=== PATIENT | male | born 1980 | race Caucasian/White ===

== ENCOUNTER 2017-11-17 09:07 | Day surgery (SDC) | payer OTHER ==
[~2017-11-17 09:07] MED LIST: Acetaminophen/HYDROcodone 325-5 MG Tab PO PRN; Lactated Ringers 1,000 ML IV SCH; ceFAZolin 2 GM in Premix Bag 1 BAG IV SCH
--- NOTE | 2017-11-17 09:50 | PCM.PREANE ---
Preanesthetic Assessment - Anesthesia/Transfusion/Family Hx Anesthesia History: Prior Anesthesia Without Reaction Family History of Anesthesia Reaction: No Transfusion History: No Prior Transfusion(s) - Review of Systems General: No Symptoms Pulmonary: No Symptoms Cardiovascular: No Symptoms Gastrointestinal: No Symptoms Neurological: No Symptoms Other: Reports: None - Physical Assessment O2 Sat by Pulse Oximetry: 97 Respiratory Rate: 20 Vital Signs: Last Vital Signs Temp 36.5 C 11/17/17 09:25 Pulse 73 11/17/17 09:25 Resp 20 11/17/17 09:25 BP 143/98 H 11/17/17 09:25 Pulse Ox 97 11/17/17 09:25 Height: 1.83 m Weight: 120.202 kg ASA Class: 1 Mental Status: Alert & Oriented x3 Dentition: Reports: Normal Dentition ROM/Head Extension: Full Lungs: Clear to Auscultation, Normal Respiratory Effort Cardiovascular: Regular Rate, Regular Rhythm - Allergies Allergies/Adverse Reactions: Allergies Allergy/AdvReac Type Severity Reaction Status Date / Time No Known Allergies Allergy Verified 11/12/17 11:36 - Anesthesia Plan Pre-Op Medication Ordered: None - Acknowledgements Anesthesia Type Planned: General Anesthesia Pt an Appropriate Candidate for the Planned Anesthesia: Yes Alternatives and Risks of Anesthesia Discussed w Pt/Guardian: Yes Pt/Guardian Understands and Agrees with Anesthesia Plan: Yes Additional Comments: PLAN: [email or web address] PreAnesthesia Questionnaire HEENT History: Reports: None Cardiovascular History: Reports: None Respiratory History: Reports: None Gastrointestinal History: Reports: None Genitourinary History: Reports: None Musculoskeletal History: Reports: Back Pain, Chronic Neurological History: Reports: None Psychiatric History: Reports: None Endocrine/Metabolic History: Reports: Obesity/BMI 30+ Hematologic History: Reports: None Immunologic History: Reports: None Oncologic (Cancer) History: Reports: None Dermatologic History: Reports: None - Past Surgical History Head Surgeries/Procedures: Reports: None Musculoskeletal Surgical History: Reports: Arthroscopic Knee - SUBSTANCE USE Smoking Status *Q: Current Every Day Smoker Tobacco Use Within Last Twelve Months: Smokeless Tobacco Recreational Drug Use History: No - HOME MEDS Home Medications: Home Meds . [No Known Home Meds] 11/12/17 [History] - CURRENT (IN HOUSE) MEDS Current Meds: Current Medications Hydrocodone Bitart/Acetaminophen ([place] 325-5 Mg) 1 - 2 tab PO Q4H PRN PRN Reason: Pain Cefazolin Sodium/Dextrose 2 gm (/ Premix) 50 mls @ 100 mls/hr IV ONCALL [facility] Lactated Ringer's (Ringers, Lactated) 1,000 mls @ 100 mls/hr IV ASDIRECTED [facility] Last Admin: 11/17/17 09:30 Dose: 100 mls/hr
[2017-11-17] MEDS ORDERED: fentaNYL 250 MCG/5 ML SDV ONE (10:30)
[2017-11-17] MEDS ORDERED: Lidocaine 2% 5 ML SDV ONE (10:30)
[2017-11-17] MEDS ORDERED: Ondansetron 4 MG/2 ML SDV ONE (10:30)
[2017-11-17] MEDS ORDERED: Propofol 200 MG/20 ML SDV ONE (10:30)
[2017-11-17] MEDS ORDERED: Midazolam 1 MG/ML 2 ML SDV ONE (10:30)
[2017-11-17] MEDS ORDERED: ceFAZolin 1 GM Vial ONE (10:40)
[2017-11-17] MEDS ORDERED: Sodium Chloride 0.9% 20 ML ONE (10:40)
[2017-11-17] MEDS ORDERED: fentaNYL 100 MCG/2 ML SDV IVPUSH PRN (10:47)
[2017-11-17] MEDS ORDERED: Lidocaine 1% 20 ML MDV ONE (11:16)
[2017-11-17] MEDS ORDERED: Glycopyrrolate 0.2 MG/ML SDV ONE (11:29)
--- NOTE | 2017-11-17 12:28 | PCM.OPNOTE ---
- General Post-Op/Procedure Note Date of Surgery/Procedure: 11/17/17 Operative Procedure(s): Right knee arthroscopy with partial medial menisectomy Post-Op Diagnosis: R knee medial meniscus tear. R knee DJD Anesthesia Technique: General LMA Primary Surgeon: Maggie Fields Twisting Frame Fixer: Jonah Edge in mLs: 5 Condition: Good Free Text/Narrative:: tt=34 min Brief history: Patient is a 36-year-old male who was had complaint of progressive right knee pain. 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 Due to his lack response conservative treatment, I did recommend surgical intervention. Risks and goals of procedure were discussed with the patient with document preoperatively. He agreed to proceed. Description of procedure: Patient was properly identified and brought to the operating room. They were transferred from the OR cart and placed on operating table in supine position. General anesthesia was administered. After adequate anesthesia was obtained, well-padded tourniquet was applied to the lower extremity. The lower extremity was then prepped in standard fashion using ChloraPrep solution. It was then sterilely draped. A timeout was performed to ensure correct site and procedure. Preoperative antibiotics were given. The surgical site had been marked preoperatively. An Esmarch was used to exsanguinate the lower extremity and the tourniquet was inflated to 250 mmHg. A lateral portal arthrotomy was established. Blunt trocar and cannula were introduced into the suprapatellar space. Camera, inflow, and outflow were assembled. Findings: Supra-patellar pouch: No significant synovitis. 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 The patella showed diffuse grade 2- 3 degenerative changes. The patella appeared to track centrally. Lateral and medial gutter: No loose bodies were identified. Medial compartment: A medial portal arthrotomy was established. A blunt probe was inserted. There was found to be an unstable bucket handletear along the posterior horn of the medial meniscus which pulled easily into the joint space with probing. This was resected using a combination of biters and shaver. The remaining meniscus was again probed and the remaining meniscus was found to be stable. The joint surfaces showed minor degenerative findings consistent with grade 2 chondromalacia. Notch: Both the ACL and PCL were visualized and probed and found to be intact. Lateral compartment: The lateral meniscus was probed and found to be stable. Minor grade 1 degenerative changes were found. A full thickness fissue was noted along the lateral tibial plateau. This was probed and no loosening of the cartilage was found. Instruments were then removed from the knee. The portal sites were closed with 3 -0 nylon. 1% lidocaine was injected along the portal tracts. Xeroform gauze was placed over the wound and a bulky dressing was applied. Tourniquet was then deflated. Patient was awakened from the anesthetic and transferred back to the operative cart. Patient was brought to recovery room in stable condition. All needle and sponge counts were correct.
--- NOTE | 2017-11-17 12:44 | PCM.POSTAN ---
POST ANESTHESIA ASSESSMENT - MENTAL STATUS Mental Status: Alert, Oriented - VITAL SIGNS Pulse Rate: 70 SaO2: 96 Resp Rate: 13 Blood Pressure: 124/88 - RESPIRATORY Respiratory Status: Respiratory Rate WNL, Airway Patent, O2 Saturation Stable - CARDIOVASCULAR CV Status: Pulse Rate WNL, Blood Pressure Stable - GASTROINTESTINAL GI Status: No Symptoms - POST OP HYDRATION Hydration Status: Adequate & Stable
--- NOTE | 2017-11-17 13:20 | PCM48HPAN ---
Post Anesthesia Note - EVALUATION WITHIN 48HRS OF ANESTHETIC Vital Signs in Normal Range: Yes Patient Participated in Evaluation: Yes Respiratory Function Stable: Yes Airway Patent: Yes Cardiovascular Function Stable: Yes Hydration Status Stable: Yes Pain Control Satisfactory: Yes Nausea and Vomiting Control Satisfactory: Yes Mental Status Recovered: Yes Pulse Rate: 70 Resp Rate: 16 Blood Pressure: 124/88
== END 2017-11-17 13:40 | disposition home or self-care (01) ==
LOC: MW.SDS 09:07
PROVIDERS: ATTEND Orthopaedic Surgery
DX: S83.211A Bucket-handle tear of medial meniscus, current injury, right knee, initial encounter (principal); M22.41 Chondromalacia patellae, right knee; E66.9 Obesity, unspecified; Z68.35 Body mass index [BMI] 35.0-35.9, adult; Z87.891 Personal history of nicotine dependence
CPT/HCPCS: 29881; 88304; J0690; J2250; J2405; J2704; J3010; J3490; J7120